=== PATIENT | female | born 1975 | race Caucasian/White ===

== ENCOUNTER 2018-12-29 23:43 | Emergency (ER) | payer OTHER, MEDICAID ==
[2018-12-30] MEDS: HYDROCODONE/APAP (5/325) TAB PO (02:42)
[2018-12-30] MEDS: KETOROLAC 30 MG INJ IM (02:42)
== END 2018-12-30 05:31 | disposition home or self-care (01) ==
LOC: FTE 23:43
DX: M79.605 Pain in left leg (principal); M79.89 Other specified soft tissue disorders
CPT/HCPCS: 29515; 73590; 73610; 73630-LT; 81025; 93971; 96372; 99285-25